=== PATIENT | female | born 1930 | race Caucasian/White ===

== ENCOUNTER 2017-05-05 13:48 | Emergency (ER) | payer BC ==
[~2017-05-05] VITALS: Ht 162.6 cm; Wt 69.4 kg
[2017-05-05 15:15] LABS: HEMATOCRIT 34.1 % (36.0-46.0); MCH 27.5 PG (29.0-34.0); MCHC 32.3 G/DL (30.0-36.0); MCV 85.3 FL (83-99); PLATELET COUNT 341 K/uL (156-360); RBC DIS.WIDTH-SD 46.5 % (39-53); WHITE BLOOD COUNT 7.3 K/uL (4.1-10.2)
[2017-05-05 15:25] LABS: ALBUMIN 4.3 g/dL (3.2-4.8); CHLORIDE 105 mEq/L (99-109); POTASSIUM 4.1 mEq/L (3.7-5.4); SODIUM 142 mEq/L (136-147)
[2017-05-05 15:28] LABS: GLUCOSE 110 mg/dL (70-99); TOTAL PROTEIN 7.5 g/dL (6.4-8.3)
[2017-05-05 15:30] LABS: TOTAL BILIRUBIN 0.4 mg/dL (0.0-1.0)
[2017-05-05 15:31] LABS: ALKALINE PHOSPHATASE 80 IU/L (3-129); CREATININE 0.9 mg/dL (0.6-1.3)
[2017-05-05 15:32] LABS: UREA NITROGEN (BUN) 19 mg/dL (9-23)
[2017-05-05 15:33] LABS: AST (GOT) 20 IU/L (2-34); GFR ESTIMATE (CALCULATED) > 59 mL/min/
[2017-05-05 15:34] LABS: ALT (GPT) 17 IU/L (3-49)
[2017-05-05 15:53] LABS: APPEARANCE CLEAR ((CLEAR)); BILIRUBIN NEGATIVE; BLOOD SMALL; COLOR YELLOW ((YELLOW)); GLUCOSE (STRIP) NEGATIVE; KETONES NEGATIVE; LEUKOCYTES TRACE; NITRITE NEGATIVE; PROTEIN (STRIP) NEGATIVE; UROBILINOGEN 0.2 MG/DL (0.2-1.0)
[2017-05-05 16:01] LABS: BACTERIA NONE SEEN /HPF; EPITHELIAL CELLS RARE /HPF; MUCUS TRACE /LPF; RED BLOOD CELLS 0-5 /HPF (0-5); UCUL ADDED? NO; WHITE BLOOD CELLS 0-5 /HPF (0-5)
[2017-05-05 16:23] LABS: LIPASE 45 U/L (1.0-51.0)
[2017-05-05] MEDS ORDERED: CITRATE OF MAG296 ML PO (18:01)
[2017-05-05 18:23] VITALS: BP 117/58
== END 2017-05-05 18:25 | disposition home or self-care (01) ==
LOC: EME 13:48
DX: R10.9 Unspecified abdominal pain (principal)
CPT/HCPCS: 74176; 80053; 81003; 83690; 85027; 99281; 99284

== ENCOUNTER → 2017-05-23 | Outpatient (CLI) | payer BC ==
[~2017-05-23] MED LIST: CITRATE OF MAG296 ML PO
== END | disposition home or self-care (01) ==
LOC: RAD 10:21
DX: R93.8 Abnormal findings on diagnostic imaging of other specified body structures (principal)
CPT/HCPCS: 71260

== ENCOUNTER → 2017-08-04 | Outpatient (CLI) | payer BC ==
[~2017-08-04] MED LIST changes: +AMBIEN5 MG PO; +CELEXA40 MG PO; +OMEPRAZOLE40 M1 PO; +XANAX0.25 MG PO
== END | disposition home or self-care (01) ==
LOC: OPR 07:40 → EDSTATUS 08:00 → OPR 08:00
DX: C34.32 Malignant neoplasm of lower lobe, left bronchus or lung (principal); K21.9 Gastro-esophageal reflux disease without esophagitis; F41.8 Other specified anxiety disorders
CPT/HCPCS: 71045; 77012; 88305; 88341 TC; 88342 TC; J3010